=== PATIENT | female | born 1960 | race Caucasian/White ===

== ENCOUNTER 2018-04-04 16:53 | Emergency (ER) | payer OTHER, BC ==
[~2018-04-04] VITALS: Ht 154.9 cm; Wt 68.0 kg
[2018-04-04] MEDS ORDERED: NORCO 5-325 TA1 EACH PO (19:52)
[2018-04-04] MEDS ORDERED: ONDANSETRON ODT8 MG PO (19:52)
[2018-04-04] MEDS ORDERED: ZITHROMAX250 MG PO (19:52)
--- NOTE | 2018-04-04 21:50 | EKG ---
[facility] [address] [facility] [place] [address] Signed Sinus tachycardia with premature atrial complexes ST \T\ T wave abnormality, consider inferior ischemia Abnormal ECG No previous ECGs available Confirmed by FANNY MATUTE MD ([id number]) on 04/04/2018 9:50:35 PM Electronically Signed By: FANNY MATUTE MD 04/04/18 2150 PATIENT NAME: ARAVIND BUSTAMANTE Electrocardiogram DATE OF : 60 PHYSICIAN: FANNY MATUTE MD REPORT #: [id number] REPORT IS CONFIDENTIAL AND NOT TO BE RELEASED WITHOUT AUTHORIZATION
== END 2018-04-04 20:39 | disposition home or self-care (01) ==
LOC: ED 16:53
DX: J18.9 Pneumonia, unspecified organism (principal); Z88.8 Allergy status to other drugs, medicaments and biological substances
CPT/HCPCS: 71046; 80053; 83605; 85025; 87040; 93005; 93010; 96361; 96365; 96366; 96375; 99283; J0456; J0696; J1170; J1885; J2405; J7030

== ENCOUNTER 2022-06-14 17:52 | Emergency (ER) | payer OTHER, BC ==
[~2022-06-14] VITALS: Ht 154.9 cm; Wt 64.4 kg
[~2022-06-14 17:52] MED LIST: NORCO 5-325 TA1 EACH PO; ONDANSETRON ODT8 MG PO; ZITHROMAX250 MG PO
[2022-06-14] MEDS ORDERED: LOSARTAN POTASS50 MG PO (18:10)
[2022-06-14] MEDS ORDERED: BENZONATATE200 MG PO (18:11)
[2022-06-14] MEDS ORDERED: VENTOLIN HFA18 GM INH (20:38)
[2022-06-14] MEDS ORDERED: PREDNISONE20 MG PO (20:38)
[2022-06-14] MEDS ORDERED: FLONASE ALLERG9.9 ML NAS (20:38)
== END 2022-06-14 21:07 | disposition home or self-care (01) ==
LOC: ED 17:52
DX: J20.9 Acute bronchitis, unspecified (principal); J30.9 Allergic rhinitis, unspecified; I10 Essential (primary) hypertension; Z88.8 Allergy status to other drugs, medicaments and biological substances
CPT/HCPCS: 71045; 94640; 99283-25; J7512

== ENCOUNTER 2022-09-08 11:48 | Day surgery (SDC) | payer OTHER, BC ==
[~2022-09-08] VITALS: Ht 154.9 cm; Wt 65.0 kg
[~2022-09-08 11:48] MED LIST changes: +BENZONATATE200 MG PO; +FLONASE ALLERG9.9 ML NAS; +LOSARTAN POTASS50 MG PO; +PREDNISONE20 MG PO; +VENTOLIN HFA18 GM INH
[2022-09-08] MEDS ORDERED: ZYRTEC10 MG PO (12:04)
--- NOTE | 2022-09-08 13:45 | NUR ---
09/08/22 1345 [facility] 1341- PT ARRIVES TO PACU EASILY AROUSABLE TO VOICE. PT REPORTS NO PAIN OR NAUSEA AND FALLS RIGHT BACK TO SLEEP. RESP EVEN AND UNLABORED. OXYGEN SAT MID TO HIGH 90'S ON RA.
--- NOTE | 2022-09-11 12:36 | OR ---
[facility] [address] [place], [place] [address] Signed DATE OF OPERATION: 09/08/2022 SURGEON: Israel Moise MD PREOPERATIVE DIAGNOSES: 1. Episodic fecal urgency and loose stools. 2. History of cholecystectomy in 2006. POSTOPERATIVE DIAGNOSES: 1. Mild edema of rectum. 2. Scattered diverticulosis. PROCEDURE: Total colonoscopy to cecum with biopsy of sigmoid and rectum. ANESTHESIA: Intravenous sedation; fentanyl 100 mcg and Versed 6 mg. INDICATION: This 61-year-old white woman is a patient Dr. Alexa Hoyt. She is known to me from the past having undergone colonoscopy which was normal in 2011 and laparoscopic cholecystectomy in 2006 for symptomatic gallstones. She remains a patient of Dr. Hoyt. She has had a significant fecal urgency and notes her bowel movements are loose and not associated with bleeding. The patient has no family history of colon cancer, though it is notable that her at an early age of age 50 of colon cancer. She is well aware of colon cancer issues. She is admitted at this time to undergo colonoscopy to better characterize the source of her fecal urgency and diarrhea. She understands the risk of bleeding, infection, and perforation. FINDINGS: The prep was excellent. Complete colonoscopy was undertaken to the cecum without question. She had fullness in the cecum suggestive of submucosal lipoma, though that is not certain. She had no evidence of polyps or cancer per se. She did have edema in the rectum and sigmoid suggestive though not diagnostic of a low-grade inflammation. Diverticula were seen in the sigmoid and left colon dominantly. DESCRIPTION OF PROCEDURE: The patient was brought to the endoscopy suite and placed in the lateral decubitus position, given intravenous sedation to the point of slurred speech and nystagmus. Digital rectal examination was normal. Electronically Signed By: ISRAEL MOISE MD 09/11/22 1236 PATIENT NAME: ARAVIND BUSTAMANTE OPERATIVE REPORT DATE OF : 60 REPORT #: [id number] PHYSICIAN: ISRAEL MOISE MD PCP: ALEXA HOYT MD REPORT IS CONFIDENTIAL AND NOT TO BE RELEASED WITHOUT AUTHORIZATION [facility] [address] [place], [place] [address] Signed An Olympus video colonoscope was passed in the rectum and manipulated throughout the colon noting diverticular change of the sigmoid and left colon. Scope was ultimately advanced to the cecum. The ileocecal valve and appendiceal orifice were identified as normal. She had fullness in the cecum proper suggestive though not diagnostic of possible lipoma. This is uncertain. The scope was withdrawn from that point and examination throughout showed only scattered diverticula throughout the colon. Biopsies were taken of the sigmoid and rectum to assess for occult colitis (microscopic colitis). Retroflexed view was unremarkable. Scope was removed and the patient was taken to the recovery room in good condition. CONCLUDING DIAGNOSIS: Possible low-grade inflammatory change of rectum and rectosigmoid. We will await biopsy results to determine that. Diverticulosis unlikely be causing her current symptoms. Would recommend Questran 4 g p.o. q.i.d. on the possibility of choleretic diarrhea. will be tapered to the lowest effective dose. Would recommend repeat colonoscopy in 5 to 7 years otherwise. Israel Moise MD JM/MODL /[id number] cc: Alexa Hoyt MD Copies: ALEXA HOYT MD ~ Electronically Signed By: ISRAEL MOISE MD 09/11/22 1236 PATIENT NAME: ARAVIND BUSTAMANTE OPERATIVE REPORT DATE OF : 60 REPORT #: [id number] PHYSICIAN: ISRAEL MOISE MD PCP: ALEXA HOYT MD REPORT IS CONFIDENTIAL AND NOT TO BE RELEASED WITHOUT AUTHORIZATION
--- NOTE | 2022-09-13 12:51 | PATH ---
[facility] [address] [place], [place] [address] Signed SPECIMEN(S): A SIGMOID BIOPSY SPECIMEN(S): B RECTAL BIOPSY SPECIMEN SOURCE: A. SIGMOID BIOPSY B. RECTAL BIOPSY 1 CLINICAL HISTORY: Surveillance; occasional diarrhea; fecal urgency; last colonoscopy in 2011 was negative. Postop: Mild proctitis, diverticulosis FINAL PATHOLOGIC DIAGNOSIS: A. Sigmoid biopsy: - Polypoid fragments of benign colonic mucosa, negative for specific diagnostic abnormality. B. Rectal biopsy: - Benign colonic mucosa, negative for specific diagnostic abnormality. JVR:[facility]:[email or web address] MICROSCOPIC EXAMINATION: Histologic sections of all submitted blocks are examined by light microscopy. These findings, together with the gross examination, support the pathologic diagnosis. GROSS DESCRIPTION: Two specimens are received in two containers, labeled "Mariia, Viridiana." A. The specimen, labeled " Viridiana Bustamante, #1," and designated on the requisition "sigmoid biopsy," is received in formalin and consists of four pope soft tissue fragments that measure 0.4 to 0.5 cm in greatest dimension. The specimen is entirely submitted in cassette (A1). B. The specimen, labeled " Mariia, Viridiana, #2," and designated on the requisition "rectum biopsy," is received in formalin and consists of three pope soft tissue fragments that measure 0.3 to 0.4 cm in greatest dimension. The specimen is entirely submitted in cassette (B1). FB (under the direct supervision of a pathologist) The Gross Description was prepared using a voice recognition system. The report was reviewed for accuracy; however, sound-alike word errors, addition and/or deletions may occur. If there is any question about this report, please contact Client Services. PATIENT NAME: ARAVIND BUSTAMANTE PATHOLOGY DATE OF : 60 REPORT #: [id number] PHYSICIAN: GLORIA HORAN PCP: ALEXA YEPEZ MD REPORT IS CONFIDENTIAL AND NOT TO BE RELEASED WITHOUT AUTHORIZATION [facility] [address] [facility] [place] [address] Signed PERFORMING LABORATORY: The technical component was performed by [facility], [address] [place] [address] (CLIA# [id number]). Professional interpretation was performed by [facility] - [address] [address] (CLIA#: [id number]). Diagnostician: Kamari Culver MD Pathologist Electronically Signed 09/13/2022 Copies: ~ PATIENT NAME: ARAVIND BUSTAMANTE PATHOLOGY DATE OF : 60 REPORT #: [id number] PHYSICIAN: GLORIA HORAN PCP: ALEXA YEPEZ MD REPORT IS CONFIDENTIAL AND NOT TO BE RELEASED WITHOUT AUTHORIZATION
== END 2022-09-08 14:20 | disposition home or self-care (01) ==
LOC: OPS 11:48 → DS 11:48 → OPS 12:45 → DS 14:00 → OPS 14:20
PROVIDERS: ATTEND Surgery
PROC: 0DBN8ZX Excision of Sigmoid Colon, Via Natural or Artificial Opening Endoscopic, Diagnostic (ICD-10-PCS; principal; 2022-09-08 12:45)
DX: R15.2 Fecal urgency (principal); R19.7 Diarrhea, unspecified; K62.89 Other specified diseases of anus and rectum; K57.30 Diverticulosis of large intestine without perforation or abscess without bleeding; Z90.49 Acquired absence of other specified parts of digestive tract; Z90.711 Acquired absence of uterus with remaining cervical stump; Z86.16 Personal history of COVID-19; Z88.8 Allergy status to other drugs, medicaments and biological substances; Z88.5 Allergy status to narcotic agent
CPT/HCPCS: 99153; G0500; J2250; J3010; J7121